=== PATIENT | male | born 1965 | race African-American/Black ===

== ENCOUNTER 2021-03-15 01:42 | Inpatient (IN) | payer SELFPAY ==
[~2021-03-15] VITALS: Ht 172.7 cm; Wt 88.9 kg
[2021-03-15] MEDS ORDERED: KETOROLAC 30MG/ML VIAL IV STA (02:06)
[2021-03-15] MEDS ORDERED: SODIUM CHLORIDE 0.9% 1,000 ML IV ONE (02:15)
[2021-03-15 02:41] LABS: HEMATOCRIT. 40.5 % (42.0-52.0); HEMOGLOBIN. 13.4 g/dL (14.0-18.0); MEAN CORPUSCULAR HEMOGLOBIN 27.3 pg (28.0-32.0); MEAN CORPUSCULAR VOLUME 82.3 fL (80.0-94.0); PLATELET 239 x1000/uL (130-400); RED BLOOD CELL COUNT 4.92 mill/uL (4.7-6.1); RED CELL DISTRIBUTION WIDTH 14.7 % (11.6-14.6)
[2021-03-15 02:48] LABS: CHLORIDE 102 mEq/L (98-107)
[2021-03-15 03:25] LABS: PLATELET ESTIMATE NORMAL
[2021-03-15] MEDS ORDERED: ASPIRIN 81MG TABLET PO ONE (03:45)
[2021-03-15] MEDS ORDERED: NITROGLYCERIN OINT 1GM/INCH UDPKT TD ONE (03:45)
[2021-03-15 05:40] VITALS: BP 140/89
[2021-03-15] MEDS ORDERED: IOHEXOL-350 100 ML BOTTLE ONE (05:54)
[2021-03-15 06:00] VITALS: BP 140/89
[2021-03-15] MEDS ORDERED: METF-874 PO (06:58)
[2021-03-15 08:00] VITALS: BP 137/74
[2021-03-15] MEDS ORDERED: MORPHINE SULFATE 2 MG/ML CPJ (NOT FOR IM USE) IV PRN (08:15)
[2021-03-15] MEDS ORDERED: ACETAMINOPHEN 325MG TABLET PO PRN (08:15)
[2021-03-15] MEDS ORDERED: DOCUSATE SODIUM 100MG CAPSULE PO PRN (08:15)
[2021-03-15] MEDS ORDERED: MAGNESIUM/ALUMINUM HYDROXIDE/SIMETHICONE 30ML UDC PO PRN (08:15)
[2021-03-15] MEDS ORDERED: DEXTROSE 50% WATER 50ML SYRINGE IV PRN (08:15)
[2021-03-15] MEDS ORDERED: IPRATROPIUM/ALBUTEROL 0.5-3(2.5)MG/3ML NEB HHN PRN (08:15)
[2021-03-15] MEDS ORDERED: LORAZEPAM 2MG/ML CPJ IV PRN (08:15)
[2021-03-15] MEDS ORDERED: HYDRALAZINE 20MG/ML VIAL IV PRN (08:15)
[2021-03-15] MEDS ORDERED: DIPHENHYDRAMINE 50MG/ML VIAL IV PRN (08:15)
[2021-03-15] MEDS ORDERED: ONDANSETRON HCL 4MG/2ML INJ IV PRN (08:15)
[2021-03-15] MEDS ORDERED: CLONIDINE 0.1MG TABLET PO PRN (08:15)
[2021-03-15] MEDS ORDERED: HYDROCODONE/ACETAMINOPHEN 5/325MG TABLET PO PRN (08:15)
[2021-03-15] MEDS ORDERED: GUAIFENESIN 200MG/10ML SUGAR FREE UDC PO PRN (08:15)
[2021-03-15] MEDS ORDERED: NALOXONE HCL 0.4MG/ML VIAL IV PRN (08:45)
[2021-03-15] MEDS: ENOXAPARIN 40MG/0.4ML SYR SUBCUT SCH (10:44)
[2021-03-15] MEDS: BLOOD SUGAR DIAGNOSTIC STRIP TEST SCH ×3 (11:40→20:39)
[2021-03-15 12:00] VITALS: BP 121/69
[2021-03-15] MEDS: INSULIN LISPRO 100 UNITS/ML SUBCUT SCH ×3 (12:56→21:36)
[2021-03-15] MEDS: SODIUM CHLORIDE 0.9% INJ 3ML FLUSH IVF SCH ×2 (13:04→21:35)
[2021-03-15 16:00] VITALS: BP 114/71
[2021-03-15 16:22] LABS: CREATINE KINASE 412 IU/L (39-308)
[2021-03-15 20:00] VITALS: BP 107/73
[2021-03-16] VITALS: BP 118/70
[2021-03-16 01:21] LABS: CREATINE KINASE 359 IU/L (39-308)
[2021-03-16 01:22] LABS: CREATINE KINASE MB FRACTION 2.5 ng/mL (0.5-3.6)
[2021-03-16 04:00] VITALS: BP 135/84
[2021-03-16] MEDS: BLOOD SUGAR DIAGNOSTIC STRIP TEST SCH ×3 (05:41→17:15)
[2021-03-16] MEDS: SODIUM CHLORIDE 0.9% INJ 3ML FLUSH IVF SCH ×2 (05:41→14:49)
[2021-03-16] MEDS: INSULIN LISPRO 100 UNITS/ML SUBCUT SCH ×3 (06:14→17:10)
[2021-03-16 06:28] LABS: BASOPHILS % 0.4 % (0.0-2.0); EOSINOPHILS % 1.1 % (0.0-5.0); HEMATOCRIT. 38.3 % (42.0-52.0); HEMOGLOBIN. 12.7 g/dL (14.0-18.0); LYMPHOCYTES % 36.7 % (20.0-50.0); MEAN CORPUSCULAR HEMOGLOBIN 27.6 pg (28.0-32.0); MEAN CORPUSCULAR VOLUME 83.1 fL (80.0-94.0); MEAN PLATELET VOLUME 8.3 fl (7.4-10.4); MONOCYTES % 13.1 % (2.0-8.0); NEUTROPHILS % 48.7 % (40.0-76.0); PLATELET 239 x1000/uL (130-400); RED BLOOD CELL COUNT 4.61 mill/uL (4.7-6.1); RED CELL DISTRIBUTION WIDTH 14.7 % (11.6-14.6)
[2021-03-16 07:08] LABS: CHLORIDE 106 mEq/L (98-107)
[2021-03-16] MEDS ORDERED: REGADENOSON 0.4 MG/5 ML IV NR (07:45)
[2021-03-16 08:00] VITALS: BP 137/86
[2021-03-16] MEDS: ENOXAPARIN 40MG/0.4ML SYR SUBCUT SCH (09:02)
[2021-03-16 11:59] VITALS: BP 154/98
[2021-03-16] MEDS ORDERED: REGADENOSON 0.4 MG/5 ML IV ONE (12:28)
[2021-03-16 15:43] VITALS: BP 143/89
[2021-03-16 16:00] VITALS: BP 143/89
== END 2021-03-16 17:15 | disposition home or self-care (01) | DRG 203 ==
LOC: ER 01:42 → 7EST 03:48 → ENRESERV 04:43
PROVIDERS: ADMIT Internal Medicine; ATTEND Internal Medicine
DX: R07.89 Other chest pain (principal); E11.9 Type 2 diabetes mellitus without complications; I10 Essential (primary) hypertension; J44.9 Chronic obstructive pulmonary disease, unspecified; Z20.822 Contact with and (suspected) exposure to COVID-19; Z79.899 Other long term (current) drug therapy
CPT/HCPCS: 36415; 71045; 71275; 78452; 80053; 82550; 82553; 82962; 83036; 83880; 84443; 84484; 85025; 85379; 87426; 93005; 93017; 93306; 93970; 99285; A9500; J1650; J1815; J1885; J2785; J7030; Q9967